=== PATIENT | female | born 1930 | race Caucasian/White ===

== ENCOUNTER → 2016-12-29 | Outpatient (REF) ==
[2016-12-29 14:48] LABS: BASOPHILS % (AUTO) 0 % (0-2); EOSINOPHILS # (AUTO) 0.1 10^3uL; EOSINOPHILS % (AUTO) 1 % (0-4); LYMPHOCYTES # (AUTO) 2.2 X10^3; MEAN CORPUSCULAR HEMOGLOBIN 29.8 PG (26.0-34.0); MEAN CORPUSCULAR VOLUME 93 FL (80-100); MEAN PLATELET VOLUME 10.7 FL (6.0-9.5); MONOCYTES # (AUTO) 0.4 X10^3; MONOCYTES % (AUTO) 5 % (3-11); NEUTROPHILS # (AUTO) 5.3 X10^3; NEUTROPHILS % (AUTO) 66 % (51-67); PLATELET COUNT 305 10^3uL (150-450); WHITE BLOOD COUNT 8.01 10^3uL (4.0-11.0)
[2016-12-29 15:05] LABS: ALBUMIN 4.1 g/dL (3.4-5.0); ANION GAP 14.8 MEQ/L (3-15); CALCULATED IONIZED CALCIUM 4.4 mg/dL (3.8-4.6); TOTAL PROTEIN 7.7 g/dL (6.4-8.5)
== END ==
LOC: CLAB.BLUES 14:38
PROVIDERS: ATTEND Family Medicine
DX: B02.29 Other postherpetic nervous system involvement (principal); E11.9 Type 2 diabetes mellitus without complications; E03.9 Hypothyroidism, unspecified
CPT/HCPCS: 80053; 80061; 83036; 84443; 85025

== ENCOUNTER → 2017-01-26 | Outpatient (CLI) | payer OTHER ==
--- NOTE | 2017-01-26 17:41 | Diagnostic Imaging Report ---
EXAMINATION: Right knee, four views. COMPARISON: None. HISTORY: An 86-year-old female, right knee pain. FINDINGS: The right patella is not subluxed and appears unremarkable in position on the lateral view. There are small patellofemoral compartment osteophytes. The medial and lateral compartments are not significantly narrowed. There is a small central osteophyte arising from the lateral femoral condyle. There is no identified acute fracture or dislocation. There is no knee joint effusion. IMPRESSION: 1. No identified acute bony abnormality of the right knee or right knee joint effusion. 2. Mild lateral and patellofemoral compartment osteoarthritis. Dictated by: Dictated on workstation # [id number]
== END ==
LOC: RAD 10:43
PROVIDERS: ATTEND Family Medicine
DX: M25.561 Pain in right knee (principal)
CPT/HCPCS: 73564

== ENCOUNTER → 2017-02-23 | Outpatient (CLI) | payer OTHER ==
--- NOTE | 2017-02-23 13:52 | Diagnostic Imaging Report ---
INDICATION: Nasal congestion and rhinitis. CT sinuses obtained with axial slices without contrast and coronal reconstructions and sagittal reconstructions. The frontal sinuses are clear. Ethmoid air cells are clear. The sphenoid sinuses are clear. The maxillary sinuses appear clear bilateral. The visualized portions of the mastoid air cells are also clear. The ostiomeatal complexes are not obstructed. There is no bony erosive lesion. Orbital contents appear unremarkable. IMPRESSION: Negative CT sinuses. Dictated by: Dictated on workstation # [id number]
== END ==
LOC: RAD 13:15
PROVIDERS: ATTEND Family Medicine
DX: R09.81 Nasal congestion (principal); J30.0 Vasomotor rhinitis
CPT/HCPCS: 70486